=== PATIENT | male | born 2000 | race Caucasian/White ===

== ENCOUNTER 2020-08-19 23:27 | Emergency (ER) | payer OTHER, SELFPAY ==
--- NOTE | 2020-08-19 23:30 | DI.RAD_ITS ---
EXAM: XR ELBOW LT COMPLETE CLINICAL HISTORY: trauma. TECHNIQUE: 2D digital imaging was performed. COMPARISON: No exams were available for comparison FINDINGS: There is a nondisplaced fracture of the radial neck-head junction, on the lateral aspect. No other f indings. There is a joint effusion-hemarthrosis noted. There is no swelling of the olecranon bursa. IMPRESSION: DATA REPOSITORY: RADIATION DOSE DELIVERED:
[2020-08-19 23:31] VITALS: BP 142/82; PULSE 107; RESP 18; TEMP 37.2; O2SAT 98
--- NOTE | 2020-08-19 23:34 | W.ED.GENAD ---
Discharge Plan Disposition Patient Disposition: HOME Condition: Good Discharge Details Clinical Impression: Injury of elbow, left Primary Care Provider: Modesto Keith ED Provider: Rory Morgan Home Meds and New Rx's Prescriptions: No Action melatonin 3 mg Capsule 6 mg PO HS PRNRF: 0 Discharge Instructions Instructions: Splint Care (ED) Additional Instructions: No obvious fracture but large effusion suggest possible fracture. Wear splint and keep arm elevated. Ice on/off next few days. Tylenol or Motrin for pain. Follow up with ortho in 7 - 10 days. Return to ED for severe worsening pain, numbness, weakness, discolored hand/fingers. Stand Alone Forms: Work Release Referrals: Jourdan Marr MD [ [facility] STAFF PHYSICIAN] - Medical Decision Making Fall with left elbow injury. Toradol IM and x-ray ordered. X-ray without fracture seen but large effusion present. Will place in posterior long arm splint and sling. Refer to ortho for follow up. Return to ED if numbness, weakness, discoloration, severe worsening pain. HPI General Mode of arrival: ambulatory. Date/Time Provider Initiated Documentation: 08/19/20 23:34. Limitations to Documentation: no limitations. Information obtained by: patient and RN notes reviewed. HPI Narrative: Patient is right hand dominant male who fell and caught self with left hand down sending pain up into elbow. Unable to range elbow without pain. Did not get injured otherwise. No numbness or weakness to arm. Related Data Home Medications Medication Instructions Recorded Confirmed melatonin 6 mg PO HS PRN 08/19/20 08/19/20 Allergies Allergy/AdvReac Type Severity Reaction Status Date / Time No Known Allergies Allergy Unverified 08/19/20 23:34 General Stated Complaint: Orthopedic MARCO: 4 Review of Systems Constitutional Constitutional: Denies fever(s) and Denies weakness Cardiovascular Cardiovascular: Denies dyspnea Respiratory Respiratory: Denies cough and Denies dyspnea Musculoskeletal Musculoskeletal: Reports arthralgias, Reports limited range of motion, Denies numbness and Denies tingling Neurologic Neurologic: Denies numbness, Denies tingling and Denies weakness [facility] Medical History No significant past medical history Surgical History No significant past surgical history Social History Smoking/Tobacco Use Status: Never Smoking risk assessment performed?: Yes Alcohol Intake: never Substance use type: does not use Do you feel safe at home: Yes Do you feel safe in your relationship?: Yes Exam Narrative Exam Narrative: Const: WDWN male in NAD. HEENT: NC/AT. Normal facial exam. Neck: Supple. Trachea midline. Normal ROM. Lungs: Normal respiratory effort. Cor: RRR. Good radial pulses. Neuro: A+O x 3. Normal speech, mentation, gait. Cranial nerves II - XII grossly intact. No gross motor or sensory deficit. Ext: Left arm with elbow flexed at 90 degrees and held against body. Very limited ROM if any. Tender over the radial head. NVI distal. Skin: Warm and dry without lac/abrasions. Course Vital Signs Vital signs: Vital Signs Temperature 99.0 F 08/19/20 23:31 Pulse 107 H 08/19/20 23:31 Respiratory Rate 18 08/19/20 23:31 Blood Pressure 142/82 H 08/19/20 23:31 Pulse Oximetry 98 08/19/20 23:31 Temperature 99.0 F 08/19/20 23:31 Pulse 107 H 08/19/20 23:31 Respiratory Rate 18 08/19/20 23:31 Blood Pressure 142/82 H 08/19/20 23:31 Pulse Oximetry 98 08/19/20 23:31 Pain Level 6 08/19/20 23:31 Procedures Orthopedic Splinting/Casting Injury #1: Side: left Upper Extremity Injury Location: elbow Upper Extremity Immobilizer: posterior splint Additional Comments: NVI post splint application
[2020-08-19] MEDS: Ketorolac 30 MG/ML VIAL IM (23:43)
--- NOTE | 2020-08-20 00:19 | DI.VRAD_ITS ---
PROCEDURE INFORMATION: Exam: XR Left Elbow Exam date and time: 08/19/2020 11:38 PM Age: 20 years old Clinical indication: Injury or trauma; Fall; Blunt trauma (contusions or hematomas); Elbow; Left TECHNIQUE: Imaging protocol: XR Left elbow. Views: 3 or more views. Total images: 3 COMPARISON: No relevant prior studies available. FINDINGS: Bones/joints: There is a large left elbow effusion. There is no fracture. No dislocation. Soft tissues: Unremarkable. IMPRESSION: Large elbow effusion in the absence of a visualized fracture raises the possibility of an occult radial head fracture. Recommend follow-up if symptoms persist. Dictated and Authenticated by: Pepito Mena MD. Ordering:ANDRADE Valadez MD
== END 2020-08-20 00:45 | disposition home or self-care (01) ==
PROVIDERS: Emergency Provider Emergency Medicine; PCP Family Medicine
DX: S59.902A Unspecified injury of left elbow, initial encounter (principal); M25.422 Effusion, left elbow; W19.XXXA Unspecified fall, initial encounter; Y99.0 Civilian activity done for income or pay
CPT/HCPCS: 96372; 99284; 73080; J1885

== ENCOUNTER 2020-08-28 15:07 | Outpatient (CLI) | payer OTHER, SELFPAY ==
--- NOTE | 2020-08-28 10:48 | DI.RAD_ITS ---
Exam(s) XR ELBOW LT COMPLETE EXAM: XR ELBOW LT COMPLETE CLINICAL HISTORY: left elbow injury. TECHNIQUE: 2D digital imaging was performed. COMPARISON: CR,XR XR ELBOW LT COMPLETE from 08/19/2020 FINDINGS: BONES: There has been no change in alignment of the radial neck fracture. No bony destructive lesion is seen. JOINTS: The elbow is normally aligned. There is a persistent hemarthrosis. SOFT TISSUE: Normal. IMPRESSION: Stable radial fracture. DATA REPOSITORY: RADIATION DOSE DELIVERED:
== END 2020-08-28 15:08 | disposition home or self-care (01) ==
LOC: DIORS 15:08
PROVIDERS: PCP Family Medicine; Referring Provider Family Medicine; Visit Provider Student in an Organized Health Care Education/Training Program
DX: S52.135D Nondisplaced fracture of neck of left radius, subsequent encounter for closed fracture with routine healing (principal)
CPT/HCPCS: 73080

== ENCOUNTER 2020-11-02 09:40 | Outpatient (CLI) | payer OTHER, SELFPAY ==
--- NOTE | 2020-11-02 09:00 | DI.RAD_ITS ---
Exam(s) XR ELBOW LT COMPLETE EXAM: XR ELBOW LT COMPLETE CLINICAL HISTORY: follow up. TECHNIQUE: 2D digital imaging was performed. COMPARISON: CR,XR XR ELBOW LT COMPLETE from 08/19/2020 CR,XR XR ELBOW LT COMPLETE from 08/19/2020 CR XR ELBOW LT COMPLETE from 08/28/2020 FINDINGS: BONES: The nondisplaced fracture of the radial neck remains visible. No bony destructive lesion is s een. JOINTS: The elbow is normally aligned. The joint effusion has resolved. SOFT TISSUE: Normal. IMPRESSION: No change radial neck fracture. DATA REPOSITORY: RADIATION DOSE DELIVERED:
== END 2020-11-02 09:41 | disposition home or self-care (01) ==
LOC: DIORS 09:40
PROVIDERS: PCP Family Medicine; Referring Provider Family Medicine; Visit Provider Physician Assistant Surgical
DX: S52.132A Displaced fracture of neck of left radius, initial encounter for closed fracture (principal); W18.40XA Slipping, tripping and stumbling without falling, unspecified, initial encounter; Y92.511 Restaurant or cafe as the place of occurrence of the external cause; Y99.0 Civilian activity done for income or pay
CPT/HCPCS: 73080